=== PATIENT | female | born 1985 | race African-American/Black ===

== ENCOUNTER → 2017-07-19 | Day surgery (SDC) | payer OTHER ==
[2017-07-18 15:07] LABS: BASOPHILS % 0.4 % (0.0-1.0); EOSINOPHILS % 0.1 % (0.0-6.0); HEMATOCRIT 35.6 % (34.2-44.1); HEMOGLOBIN 10.5 g/dL (12.0-16.0); LYMPHOCYTES % 9.6 % (18.0-39.1); MEAN CORPUSCULAR HEMOGLOBIN 21.1 pg (28-32); MEAN CORPUSCULAR HGB CONC 29.5 g/dL (31-35); MEAN CORPUSCULAR VOLUME 71.6 fL (81-99); MONOCYTES # (AUTO) 0.3 (0.2-0.8); MONOCYTES % 2.3 % (4.4-11.3); NEUTROPHILS # (AUTO) 9.3 (2.1-6.9); NEUTROPHILS % 87.2 % (38.7-80.0); PLATELET COUNT 388 x10e3/uL (140-360); RED BLOOD COUNT 4.97 x10e6/uL (3.6-5.1); RED CELL DISTRIBUTION WIDTH 20.1 % (11.7-14.4)
[2017-07-18 15:10] LABS: BILIRUBIN,URINE NEGATIVE (NEGATIVE); CLARITY,URINE CLEAR (CLEAR); COLOR,URINE YELLOW (YELLOW); KETONES,URINE NEGATIVE (NEGATIVE); LEUKOCYTE ESTERASE ,URINE NEGATIVE (NEGATIVE); NITRITE,URINE NEGATIVE (NEGATIVE); PROTEIN,URINE DIPSTICK NEGATIVE (NEGATIVE); URINE UROBILINOGEN 0.2 mg/dL (0.2 - 1)
[2017-07-18 15:11] LABS: PREGNANCY TEST, URINE NEGATIVE (NEGATIVE)
[~2017-07-19] MED LIST: AZITHROMYCIN250 MG PO; CEFAZOLIN SOD 2 GM/D5W 50ML 50 ML IV ONE; DEXAMETHASONE SOD PHOS INJ 4 MG/ML VIAL ONE; EPHEDRINE SULFATE INJ 50 MG/10 ML SYR ONE; FENTANYL CITRATE/PF 100MCG/2 ML INJ ONE; LIDOCAINE HCL 2% LOCAL INJ 5 ML SDV VIAL INJ ONE; MIDAZOLAM HCL 2 MG/2 ML VIAL ONE; ONDANSETRON HCL INJ 2 MG/ML VIAL ONE; PROPOFOL IV EMULSION 10 MG/ML 20 ML VIAL ONE; SCOPOLAMINE 1.5 MG PATCH ONE; SEVOFLURANE INHAL SOLN 250 ML PEN BTL ONE; SILVER NITRATE SWABS ONE; STEROID PACK PO; VASOPRESSIN INJ 20 UNIT/ML VIAL IV SCH
--- NOTE | 2017-07-19 15:48 | Operative Report ---
DATE OF PROCEDURE: July 19, 2017 PREOPERATIVE DIAGNOSIS 1. Abnormal uterine bleeding. 2. Fibroid uterus, intracavitary type. 3. Failed medical therapy. POSTOPERATIVE DIAGNOSIS 1. Abnormal uterine bleeding. 2. Intracavitary fibroid uterus. 3. Failed medical therapy. TITLE OF PROCEDURE: Hysteroscopic myomectomy via Symphion procedure. ANESTHESIA: General with Dr. Phan and Gee, respiratory therapy assistant. INDICATION FOR THE OPERATION: The patient is a 31-year-old 4, para 2-0-2-2, with abnormal uterine bleeding unrelieved by medical therapy. She was found to have a 4 cm myoma, underwent hysteroscopic myomectomy attempt March 22, 2017. Only 60% of the myoma was removed prior to reaching fluid limit. Now the myoma is only 3.3 x 2.5 x 2.4 cm as opposed to being 4 cm prior. The patient still has bleeding. She is here to complete hysteroscopic myomectomy at this time. FINDINGS AT SURGERY: There was a 3 x 2 cm intracavitary myoma which was attached to the right lateral wall of the uterus. The ostia could not be visualized prior to removing the myoma. Once the Symphion procedure was performed and the myoma was removed, then the ostia were well visualized and the cavity was normal in appearance. PROCEDURE: The patient was taken to the operating room and placed on the table in the supine position. General anesthesia was administered. The patient was then placed in the lithotomy position. The perineum was prepared and draped in the usual sterile manner. At this time, the bladder was drained by in-and-out catheterization. Then pelvic exam revealed a [id number]-[id number] anteverted uterus with no adnexal masses. A weighted speculum was placed in the posterior vaginal wall, and with the aid of a right-angle retractor, the anterior lip of the cervix was grasped with a single-toothed tenaculum. Then the Symphion hysteroscope was placed into the uterus without dilatation being required, and because of potential for fluid loss, a second tenaculum was placed on the posterior lip of the cervix, and then we visualized the endometrial cavity and there was a 3 x 2 cm intracavitary fibroid attached on the right lateral wall that made it unable to visualize the ostia or the rest of the cavity. Therefore, the decision was made to proceed with the Symphion procedure. The Symphion device was used to excise in bites the fibroid. It was removed in small pieces, and over approximately 45 minutes the fibroid was completely excised. A few bleeders were coagulated with the Symphion instrument, and once the fibroid was excised, we could see the tubal ostia well and the cavity appeared normal. We lowered the pressure from 85 down to 70 on the Symphion, and under this circumstance a little bit more fibroid came up and it was also excised using the Symphion instrument. Then once the fibroid was completely excised, the procedure was deemed terminated. We had reached the 1600 mL fluid limit; and, therefore, all the instruments were removed from the vagina. There were no complications noted. Estimated blood loss was 20 mL. The patient tolerated the procedure well and was transferred from the operating room to the recovery room in stable condition. Of note, the patient did receive dilute Pitressin into the cervix at 2, 4, 8 and 10 o'clock prior to the hysteroscopy to reduce blood loss from the myomectomy. The patient was stable at the end of this surgery, and all the counts were correct. She did receive Ancef prophylaxis. Job#: [id number]
== END | disposition home or self-care (01) ==
LOC: OR 11:29
PROVIDERS: ATTEND Obstetrics & Gynecology
CPT/HCPCS: 36415; 81003; 81025; 85025; 88307; J1100; J2001; J2250; J2405